=== PATIENT | female | born 1980 | race African-American/Black ===

== ENCOUNTER 2017-01-28 04:24 | Emergency (ER) | payer BC ==
[2017-01-28 03:41] LABS: BUN (BLOOD UREA NITROGEN) 8 MG/DL (6-23); CALCIUM, SERUM 9.3 MG/DL (8.5-10.4); CHEST PAIN PROFILE TAT 0 Hrs 00 Mins; CHLORIDE, SERUM 104 MMOL/L (96-112); CREATININE 0.57 MG/DL (0.55-1.02); GFR AFRICAN AMERICAN 140 ML/MIN (>=60); GFR NON AFRICAN AMERICAN 121 ML/MIN (>=60); GLUCOSE, SERUM 90 MG/DL (60-99); POTASSIUM, SERUM 4.2 MMOL/L (3.5-5.3); SODIUM, SERUM 140 MMOL/L (135-148); TROPONIN I <0.02 NG/ML (<0.05)
[2017-01-28 03:44] LABS: CO2 (CARBON DIOXIDE) 29 MMOL/L (24-34)
[2017-01-28 03:58] LABS: BASOPHILS 0.2 %; BASOPHILS ABSOLUTE 0.02 10/3/uL (0.0-0.16); EOSINOPHILS 0.2 %; EOSINOPHILS ABSOLUTE 0.02 10/3/uL (0.0-0.53); HEMOGLOBIN 12.6 g/dL (12.0-16.0); IMMATURE GRANULOCYTES 0.5 %; IMMATURE GRANULOCYTES ABSOLUTE 0.07 10/3/uL (0.0-0.11); LYMPHOCYTES 23.4 %; LYMPHOCYTES ABSOLUTE 3.11 10/3/uL (0.67-4.30); MEAN CORPUS HGB CONC 34.4 g/dL (32.0-36.0); MEAN CORPUSCULAR HEMOGLOB 29.9 pg (26.0-34.0); MONOCYTES 7.2 %; MONOCYTES ABSOLUTE 0.96 10/3/uL (0.21-1.20); NEUTROPHILS 68.5 %; RBC DISTRIBUTION WIDTH 13.1 % (12.0-16.0); RED CELL COUNT 4.22 10/6/uL (4.0-5.6)
[2017-01-28 03:59] LABS: ER CBC TAT 0 Hrs 01 Mins; HEMATOCRIT 36.6 % (36.0-48.0); MANUAL DIFF NO %; MEAN CORPUSCULAR VOLUME 86.7 fL (80-100); PLATELET COUNT 324 10/3/uL (150-400); WHITE BLOOD CELLS 13.3 10/3/uL (4.5-10.5)
[2017-01-28 04:08] LABS: INTERNATIONAL NORMAL RATI 1.2 UNITS (-); PARTIAL THROMBO TIME 27.8 SEC (22.5-37.2)
== END 2017-01-28 05:05 | disposition home or self-care (01) ==
LOC: ER 04:24
PROVIDERS: Hospitalist
DX: I10 Essential (primary) hypertension (principal); F41.9 Anxiety disorder, unspecified; F17.200 Nicotine dependence, unspecified, uncomplicated
CPT/HCPCS: 71020; 80048; 83735; 84484; 85025; 85610; 85730; 93005; 99284